=== PATIENT | female | born 1975 | race Asian ===

== ENCOUNTER 2020-12-12 18:33 | Emergency (ER) | payer OTHER, SELFPAY ==
[2020-12-12 18:59] VITALS: BP 104/74; PULSE 94; RESP 16; TEMP 37.3; O2SAT 98; BMI 21.9
--- NOTE | 2020-12-12 20:50 | PC.NURSE ---
pt became verbally abusive to staff due to the wait time. this is bullshit i've been here for hours. I have a sick kid at home this is unacceptable. I want to leave pt educated to elopement/lwt process. Pt encouraged to stay in ed. Pt refused. Ambualted to exit with steady gait. skin p/w/d.
== END 2020-12-12 20:52 | disposition left against medical advice (07) ==
PROVIDERS: Emergency Provider Emergency Medicine; PCP Physician Assistant
DX: Z04.1 Encounter for examination and observation following transport accident (principal)
CPT/HCPCS: 99282

== ENCOUNTER 2021-09-03 20:34 | Emergency (ER) | payer OTHER, SELFPAY ==
[2021-09-03 20:38] VITALS: BP 126/78; PULSE 84
[2021-09-03 21:17] VITALS: BP 122/75; PULSE 98; RESP 16; TEMP 36.8; O2SAT 99; BMI 22.8
[2021-09-03] MEDS: Lidocaine HCl 2 % MPF 5 ML VIAL INFILTRATI (21:43)
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
== END 2021-09-03 23:13 | disposition home or self-care (01) ==
PROVIDERS: Emergency Provider Emergency Medicine
DX: S01.511A Laceration without foreign body of lip, initial encounter (principal); W20.8XXA Other cause of strike by thrown, projected or falling object, initial encounter; Y93.B9 Activity, other involving muscle strengthening exercises; Y92.039 Unspecified place in apartment as the place of occurrence of the external cause; Y99.9 Unspecified external cause status
CPT/HCPCS: 12011; 99283; 99284

== ENCOUNTER 2022-02-21 08:32 | Emergency (ER) | payer OTHER, SELFPAY ==
--- NOTE | ~2022-02-21 | XR_ITS ---
EXAMINATION: XR LUMBOSACRAL SPINE CLINICAL INFORMATION: Back pain. COMPARISON: Radiograph of the lumbar spine dated from 10/30/2018. TECHNIQUE: Three views of the lumbosacral spine. FINDINGS: Again noted transitional vertebral anatomy with 6 nonrib-bearing lumbar-type vertebral bodies. There is a stable compression deformity at L2. No evidence of acute compression deformities or malalignment. In the lower lumbar spine, there is a similar degree of facet hypertrophy. No significant disc space narrowing. SI joints are symmetric. Redemonstration of multiple paraspinal soft tissue calcifications, likely correlating with calcified lymphadenopathy noted on a prior CT from 2018. XR/XR lumbar spine 2-3V IMPRESSION: Transitional anatomy as above. Stable compression deformity at L2. No new compression deformity or subluxation. Similar degree of lower lumbar spine spondylosis.
[2022-02-21 08:37] VITALS: BP 126/84; BP 127/76; PULSE 77; PULSE 80; RESP 16; TEMP 36.6; O2SAT 98; BMI 23.8
[2022-02-21 08:41] VITALS: PULSE 78; RESP 16; TEMP 36.6; O2SAT 100
--- NOTE | 2022-02-21 09:07 | ED_ITS ---
HPI - Back Pain/Injury General Chief Complaint: Back Pain/Injury Stated Complaint: LOW BACK PAIN W/DIFF AMB SINCE LAST NIGHT,NO INJ Time Seen by Provider: 02/21/22 08:55 Source: patient and EMS Mode of arrival: EMS Limitations: no limitations History of Present Illness HPI Narrative: 46-year-old female came in by ambulance for evaluation of low back pain. Patient was bending and cleaning her house when she stood up felt a sudden onset low back pain that start since yesterday pain has been constant but worsening since yesterday pain is localized to the low back, with no radiation, pain is worsening with movement and no relieving factor, patient did not fall or hurt her back, no history of heavy lifting. Patient declined any weakness or numbness, no urinary or stool incontinence. Patient declined chance of pain today. Related Data Previous Rx's Medication Instructions Recorded nitrofurantoin 100 mg PO BID #20 caps 02/21/22 monohydrate/macrocrystals 100 mg capsule (Macrobid) oxycodone 5 mg tablet 5 mg PO BID PRN pain #10 tabs 02/21/22 Allergies Allergy/AdvReac Type Severity Reaction Status Date / Time Iodinated Contrast Media Allergy Unknown RASH Verified 09/03/21 21:14 [IV CONTRAST] Review of Systems Review of Systems: All other systems are reviewed and are negative Constitutional: Reports as per HPI and Reports no additional constitutional complaints Eyes: Reports as per HPI and Reports no additional eye complaints Reports system reviewed and no additional complaints, except as documented Cardiovascular: Reports as per HPI and Reports no additional cardiovascular complaints Respiratory: Reports as per HPI and Reports no additional respiratory complaints Gastrointestinal: Reports as per HPI and Reports no additional gastrointestinal complaints Genitourinary: Reports no additional female genitourinary complaints Musculoskeletal: Reports no additional musculoskeletal complaints Skin/Breast: Reports system reviewed and no additional complaints, except as docu Psychiatric: Reports no additional psychiatric complaints Endocrine: Reports no additional endocrine complaints Hematologic/Lymphatic: Reports no additional hematologic/lymphatic complaints Allergic/Immunologic: Reports no additional allergic/immunologic complaints Reports system reviewed and no additional complaints, except as documented and Reports Abnormal speech present [facility] Past Medical History Medical History No known health problems Social History Social History Advance Directives: No Advance Directives Information Provided: No Physical Exam Vital Signs: Vital Signs: Last Vital Signs Temp 97.9 F 02/21/22 08:41 Pulse 69 02/21/22 10:52 Resp 18 02/21/22 10:52 BP 129/78 02/21/22 10:52 Pulse Ox 98 02/21/22 10:52 O2 Del Method 02/21/22 10:52 BMI result Body Mass Index 23.8 Vital signs have been reviewed as appeared to be correct. Blood pressure normal. Heart rate normal. Respiration rate normal. Temperature normal. Oxygen saturation normal. A Appearance: Alert. Oriented X3. No acute distress. Head: Normal external exam. Normocephalic. Atraumatic. No Talbot signs noted. No raccoon eyes noted Eyes: PERRLA. EOMI. Conjunctiva and sclera normal. Eyelids normal. ENT: TM's Normal. Pharynx normal. Uvula midline. Moist mucous membranes. No trismus noted. No drooling noted. No muffled voice noted. Neck: Normal inspection. Neck supple. FROM. No adenopathy. Thyroid Normal. No meningeal signs. No neck mass noted. CVS: Normal heart rate and rhythm. Heart sound normal. No murmurs noted. Pulses normal throughout. Respiratory: No respiratory distress. Painless inspiration. Breath sounds normal. No wheezes/rales/rhonchi noted. Chest nontender. No accessory muscle usage noted or decreased air movement noted. Abdomen: Soft and nontender. Bowel sounds normal in all 4 quadrants. No distention noted. No organomegaly noted. No visible injury noted. Back: No CVA tenderness. Full range of motion noted. No lumbar step-off or deformity, no point of tenderness. Skin: Skin warm and dry. Normal skin color. Normal skin turgor. No rashes/lesions/lacerations noted. Extremities: No lower extremity edema. Extremities exhibit normal range of motion. Extremities nontender. Neuro: Oriented X 3. Cranial nerve exam: II-XII are grossly intact No motor deficit. No sensory deficit. Reflexes normal. Course Course Course Narrative: Back pain after bending since yesterday, pain improved in the ED after was given dose of oxycodone and Toradol with Dilaudid. Patient was able to ambulate in the emergency department, no urinary or stool incontinence. X-ray is concern of L2 compression deformity which can be the reason of patient's symptoms. More history of the patient patient been having dysuria and urinary frequency and UA is consistent with UTI will start the patient on Macrobid and encouraged to drink plenty of fluids. MDM - Back Pain/Injury Medical Records Attestation: I reviewed the patient's medical records. Lab Data Attestation: I reviewed the patient's lab results. Labs: Lab Results 02/21/22 02/21/22 Range/Units 10:51 10:51 Urine Color Yellow Urine Appearance Cloudy Urine pH 6.5 (5.0-8.0) Ur Specific [place] >= 1.030 H (1.005-1.025) Urine Protein Trace (Neg-Trace) mg/dL Urine Glucose (UA) >=1000 H (Negative) mg/dL Urine Ketones Negative (Negative) mg/dL Urine Blood Trace (Negative) Urine Nitrite Positive H (Negative) Ur Leukocyte Esterase Moderate (2+) H (Negative) Urine RBC 0-2 (0-2) /HPF Urine WBC >50 H (0-5) /HPF Ur Squamous Epith Cells 0-2 (0-2) /HPF Urine Bacteria 4+ (None Seen) Hyaline Casts 0-2 (0-2) /LPF Urine Test NEGATIVE (NEGATIVE) Imaging Data Lumbar spine x-ray: Attestation: I personally reviewed and interpreted this imaging study as follows: Radiologist's impression: Transitional anatomy as above. ? Stable compression deformity at L2. ? No new compression deformity or subluxation. ? Discharge Plan Discharge Clinical Impression: Compression fx, lumbar spine, UTI (urinary tract infection) Patient Disposition: Home, Self-Care Instructions: Urinary Tract Infection in Women (ED), Vertebral Compression Fracture (ED) Prescriptions: New nitrofurantoin monohyd/m-cryst [Macrobid] 100 mg capsule 100 mg PO BID Qty: 20 0RF Rx Instructions: must administer with a meal/food oxycodone 5 mg tablet 5 mg PO BID PRN (Reason: pain) Qty: 10 0RF Rx Instructions: Partial Fill upon patient request. Referrals: Physician,Unknown J [Primary Care Provider] -
[2022-02-21] MEDS: oxyCODONE HCl Immed Release 5 MG TABLET PO (09:10)
--- NOTE | 2022-02-21 09:21 | PC.NURSE ---
Pt resting in stretcher guarding back. Pt states back pain 10/10, no relief with repositioning. Pain medication administered as ordered.
[2022-02-21] MEDS: HYDROmorphone HCl 1 MG/ML SYRINGE IM (09:59)
[2022-02-21] MEDS: Ketorolac Tromethamine 15 MG/ML VIAL 30 MG IM (10:00)
--- NOTE | 2022-02-21 10:16 | PC.NURSE ---
Pt states no relief from Oxycodone, Dr. Jiménez aware, new pain medication ordered. Will re-assess for pain relief.
[2022-02-21 10:52] VITALS: BP 129/78; PULSE 69; RESP 18; O2SAT 98
--- NOTE | 2022-02-21 10:53 | PC.NURSE ---
improved pain, slow steady gait to bathroom, alert, skin wpd
[2022-02-21 11:05] LABS: Appearance Urine Cloudy; Color Urine Yellow; Glucose Urine UA >=1000 mg/dL (Negative); Leukocyte Esterase Urine Moderate (2+) (Negative); Nitrite Urine Positive (Negative); PH 6.5 (5.0-8.0); Specific Gravity - Urine >= 1.030 (1.005-1.025); Urine Blood Trace (Negative); Urine Ketones Negative (Negative); Urine Protein Trace mg/dL (Neg-Trace)
[2022-02-21 11:06] LABS: UPreg QC Valid YES; Urine Pregnancy NEGATIVE (NEGATIVE)
[2022-02-21 11:15] LABS: Bacteria Urine 4+ (None Seen); Hyaline Casts Urine 0-2 /LPF (0-2); RBC Urine 0-2 /HPF (0-2); Squamous Epithelial Cell Urine 0-2 /HPF (0-2); UACC Culture Trigger YES; WBC Urine >50 /HPF (0-5)
== END 2022-02-21 11:57 | disposition home or self-care (01) ==
PROVIDERS: Emergency Provider Emergency Medicine
DX: M48.56XA Collapsed vertebra, not elsewhere classified, lumbar region, initial encounter for fracture (principal); N39.0 Urinary tract infection, site not specified; B96.20 Unspecified Escherichia coli [E. coli] as the cause of diseases classified elsewhere
CPT/HCPCS: 72100; 81001; 81003; 81025; 87086; 87088; 87186; 96372; 99284; J1170; J1885

== ENCOUNTER 2023-02-09 15:21 | Emergency (ER) | payer MEDICAID, SELFPAY ==
--- NOTE | 2023-02-09 15:31 | ED_ITS ---
HPI - Extremity Injury (Upper) General Chief Complaint: Wound/Laceration Stated Complaint: split finger w knife Time Seen by Provider: 02/09/23 17:26 Source: patient Mode of arrival: ambulatory Limitations: no limitations History of Present Illness HPI narrative: Patient is a 47-year-old female with history of type 2 diabetes who presents with three children with a left hand laceration. Patient explains she was trying to cut a zip tie with a pocket knife when the knife slipped. Patient states she is up to date with tetanus vaccine and not on blood thinners. Patient's family states that the bleeding was controlled prior to arriving to the ER. Reports no issues w/ rom of fingers in left hand. Related Data Previous Rx's Medication Instructions Recorded nitrofurantoin 100 mg PO BID #20 caps 02/21/22 monohydrate/macrocrystals 100 mg capsule (Macrobid) oxycodone 5 mg tablet 5 mg PO BID PRN pain #10 tabs 02/21/22 cephalexin 500 mg tablet 500 mg PO Q6H 10 days #40 tabs 02/09/23 Allergies Allergy/AdvReac Type Severity Reaction Status Date / Time Iodinated Contrast Media Allergy Unknown RASH Verified 09/03/21 21:14 [IV CONTRAST] Review of Systems Review of Systems: Constitutional : No Weight loss, No Fever, No Chills, No Fatigue, No Malaise ENT/Mouth : No sore throat, No Rhinorrhea Eyes: No Eye Pain, No Swelling, No Redness Cardiovascular : No Chest Pain, No SOB, No Dyspnea on Exertion, No Orthopnea, No Edema, No Palpitations Respiratory : No Cough, No Sputum, No Wheezing Gastrointestinal : No Nausea, No Vomiting, No Diarrhea, No Constipation, No abdominal Pain, No Hematochezia, No Melena Genitourinary : No Dysuria, No Urinary Frequency, No Hematuria, Musculoskeletal : No joint pain, No Myalgias, No Joint Swelling Skin : +laceration to left palm, No rash Neuro : No Weakness, No Numbness, No Dizziness, No Headache Psych : No Anxiety/Panic, No Depression All other systems reviewed and are negative Yes all other systems are reviewed and are negative PMFSH Past Medical History Attestation statement: The following information was validated with the patient. Source: old records reviewed and nursing notes reviewed Medical History No known health problems Social History Social History Advance Directives: No Advance Directives Information Provided: No Physical Exam Vital Signs: Vital Signs: Last Vital Signs Temp 97.7 F 02/09/23 15:34 Pulse 89 02/09/23 15:34 Resp 18 02/09/23 15:34 BP 142/106 H 02/09/23 15:34 Pulse Ox 97 02/09/23 15:34 O2 Del Method Room Air 02/09/23 15:34 BMI result Body Mass Index 21.4 VSS Appearance: Alert.? Oriented X3.? No acute distress.? Head: Normocephalic, atraumatic, no step-offs or deformities Eyes: Pupils equal, round and reactive to light.? CVS: Normal heart rate and rhythm.? Pulses normal.? Respiratory: No respiratory distress.? Breath sounds normal.? Abdomen: Soft and nontender.? Skin: + 2 cm superficial laceration to the left palm. Sensation and motor function of the left hand and fingers is intact. Pulses 2+ and symmetric. Skin warm and dry.? Normal skin color.? Normal skin turgor.? Extremities: No lower extremity edema.? No calf ttp. 5/5 strength to bilateral upper and lower extremities Neuro: Oriented X 3.? No motor deficit.? No sensory deficit. CN 2-12 intact Course Course Course Narrative: RME: 47 yo F w/no sig PMHx c/o laceration to L hand s/p using knife 30mins [employer]. Tetanus UTD. denies injury to other area 2cm laceration to L hand palmar aspect bwt 1-2nd digits. Will need suture repair Lidocaine ordered Full HPI, ROS and PE to be performed by primary ED provider. Reevaluation(s) Reevaluation #1: dermabond applied. Cephlex sent to pharmacy as patient diabetic. Educated patient on diagnosis and treatment plan, answered all question, patient verbalizes understanding. At this time patient will be discharged home, advised to return with new or worsening symptoms. Educated on worrisome signs and symptoms and when to return. At this time I feel comfortable discharge home. Time: 18:40 Reevaluation #2: I did have a discussion with patient sutures versus Dermabond, patient did not want sutures she was adamant about Dermabond. Dermabond appropriate as edges well approximate well. No signs of fracture on my exam unlikely open fracture , mechanism of low suspicion for fracture. However will still treat with Keflex as patient is diabetic. Time: 18:42 Medications Administered Discontinued Medications Generic Name Dose Route Start Last Admin Trade Name Avelina PRN Reason Stop Dose Admin Lidocaine HCl 5 ml 02/09/23 15:33 02/09/23 18:24 Lidocaine Hcl 1 % Mpf 5 Ml Vial INFILTRATI 02/09/23 15:34 Not Given ONCE ONE Medical Decision Making Medical Decision Making MDM Narrative: 47 year old female with a laceration to the left hand PE significant for left hand superficial laceration. Pulses, motor and sensory function intact. This is likely a non-infected superficial laceration of the left hand. Unlikely . No signs of threat to limb or neruovascular compromise. Unlikely fracture, dislocation i do not suspect ligament or tendon rupture. Plan: Sutures vs dermabond. After discussion with patient, she declines sutures at this time. Wound irrigated with saline before dermabond was applied. Dressing and digit immobilizer applied. Keflex sent to home pharmacy to cover for infection since patient is diabetic. Differential Diagnosis Differential Diagnoses: The differential diagnosis associated with the presentation includes This is likely a non-infected superficial laceration of the left hand. Unlikely . No signs of threat to limb or neruovascular compromise. Unlikely fracture, dislocation i do not suspect ligament or tendon rupture. Admission/Observation Consideration of admission/observation: Escalation of care including admission/observation considered Not indicated. Prescription Management I considered prescription management with: Antibiotic Keflex sent to home pharmacy. Core Measures AMI core measures followed: Yes Measure exclusions: not indicated Critical Care Time Critical Care Time Critical Care Time: No Discharge Plan Discharge Clinical Impression: Laceration Patient Disposition: Home, Self-Care Instructions: Laceration (ED) Additional Instructions: Take your medications as prescribed. If you were prescribed antibiotics today, it is important that you take your medication to their entirety, do not skip any doses, do not finish them early. Follow-up with your primary care provider this week. Return to the emergency department with new or worsening symptoms. Such as fevers, chills, chest pain, shortness of breath, nausea, vomiting, dizziness, headache, vision changes, lethargy In case of emergency call 911 Prescriptions: New cephalexin 500 mg tablet 500 mg PO Q6H 10 Days Qty: 40 0RF No Action nitrofurantoin monohyd/m-cryst [Macrobid] 100 mg capsule 100 mg PO BID Qty: 20 0RF Rx Instructions: must administer with a meal/food oxycodone 5 mg tablet 5 mg PO BID PRN (Reason: pain) Qty: 10 0RF Rx Instructions: Partial Fill upon patient request. Referrals: Physician,None [Primary Care Provider] - 2 days
[2023-02-09 15:34] VITALS: BP 142/106; PULSE 89; RESP 18; TEMP 36.5; O2SAT 97; BMI 21.4
--- OUTSIDE RECORDS SUMMARY | 2023-02-09 17:33 | XMS_ITS | Continuity of Care Document ---
Author Name Unknown Organization [facility] Address [address], [address] [place] [address]- Care Team Providers Care Trust Advisor Name Role Phone Osmin Valdes Primary Care Physician [place] [facility] [place] 10[place]22 [facility]ryroman Martinezup[facility] [address], [address] [place] [address]- Attending Physician: Yulissa Martinez MD Referring Physician: Osmin Valdes Allergies, Adverse Reactions, Alerts Substance Reaction Severity Status Contrast Dye Active Immunizations Given and Recorded Vaccine Date Status Refusal Reason Measles/Mumps/Rubella Virus Vaccine 08/20/19 Given Medications acetaminophen 325 mg oral tablet 650 mg, By Mouth, Every 4 hours, PRN, (1-3), may give 325mg per patient preference and re-dose [id number] within 4 hours, if needed. Patient should only receive a total of 650mg of Acetaminophen every 4 hours., Refills 0, Maintenance, Pain , Mild, 0... Start Date: 08/22/19 Status: Ordered Alcohol Pads See Instructions, # 1 pack/packet, Refills 3, Tot. Refills 3, Maintenance, To use with inslin 4 x day, 08/06/19 14:41:00 EST, Compound, 158, cm, 06/06/19 10:59:00 EST, Height Start Date: 08/06/19 Status: Ordered Anusol-HC 2.5% cream with applicator 1 application, Rectally, 2 times a day, # 30 Gm, 0 Refills, Maintenance, 09/07/19 2:54:00 EDT, Cream, [id number], 1 application Rectally 2 times a day, 158, cm, 09/07/19 1:43:00 EDT, Height, 72.4, kg, 09/07/19 0:36:00 EDT, Dry Weight Start Date: 09/07/19 Status: Ordered Clonazepam By Mouth, 3 times a day, 0 Refills, Maintenance, 07/22/19 15:54:00 EST Start Date: 07/22/19 Status: Ordered Colace sodium 100 mg oral capsule 100 mg, 1, capsule, By Mouth, 2 times a day, PRN, # 60 capsule, Refills 1, Tot. Refills 1, Maintenance, for constipation, 09/07/19 2:55:00 EDT, Route to Pharmacy Electronically, [facility]pharmacy #[id number], 158, cm, 09/07/19 1:43:00 EDT, Height, 72.4, kg, 08/24... Start Date: 09/07/19 Status: Ordered Freestyle Lite Lancets See Instructions, # 1 pack/packet, Refills 3, Tot. Refills 3, Maintenance, To test blood sugar 4 x day., 08/06/19 14:41:00 EST, Compound, 158, cm, 06/06/19 10:59:00 EST, Height Start Date: 08/06/19 Status: Ordered Freestyle Lite Monitor See Instructions, # 1 box, Refills 0, Tot. Refills 0, Maintenance, To test BS 4 x day., 03/01/19 14:53:00 EDT, Compound Start Date: 03/01/19 Status: Ordered Freestyle Lite Test Strips See Instructions, # 1 pack/packet, Refills 3, Tot. Refills 3, Maintenance, To test blood sugar 4 x day. 1 Bottle= 100 test strips, 08/06/19 14:41:00 EST, Compound, 158, cm, 06/06/19 10:59:00 EST, Height Start Date: 08/06/19 Status: Ordered KlonoPIN 1 mg oral tablet 1 tablet = 1 mg, By Mouth, 2 times a day, 0 Refills, Maintenance, 09/07/19 1:47:00 EDT, Tablet Start Date: 09/07/19 Status: Ordered metFORMIN 500 mg oral tablet 2 each = 1,000 mg, By Mouth, 2 times a day, 0 Refills, Maintenance, 08/22/19 7:25:00 EST, Tablet Start Date: 08/22/19 Status: Ordered Pen [place], 30 G x 8 mm BD Ultra Fine II See Instructions, # 1 kit, Refills 0, Tot. Refills 0, Maintenance, To use with insulin 4 x day 1 kit = 200 needles, 07/04/19 21:01:00 EST, Compound, 158, cm, 06/06/19 10:59:00 EST, Height Start Date: 07/04/19 Status: Ordered Plus Iron oral tablet 1 tablet, By Mouth, Daily, # 90 tablet, 4 Refills, Maintenance, 10/16/20 16:21:00 EDT, Tablet, [id number], Partial fill upon patient request if the prescription is for a schedule II opioid drug., 1 tablet By Mouth Daily,x90 days, 158, cm, 08/24... Start Date: 10/16/20 Stop Date: 01/09/22 Status: Ordered Wellbutrin XL 150 mg/24 hours oral tablet, extended release 1 tablet = 150 mg, By Mouth, Every 24 hours, # 30 tablet, 0 Refills, Maintenance, 09/07/19 1:47:00 EDT, ER Tablet Start Date: 09/07/19 Status: Ordered Problem List Condition Confirmation Course Effective Dates Status Health St atus Informant AMA - advanced maternal age 1 Confirmed 08/19/19 Active Gestational diabetes Confirmed Active Grand multipara Confirmed Active Type 2 diabetes mellitus Confirmed Active 1Problem added by Discern Expert @MISC:9 Social History Social History Type Response Smoking Status 5-9 cigarettes (betw een 1/4 to 1/2 pack)/day in last 30 days entered on: 08/19/19 Sex Female Patient Care team information Care Team Personnel Name: Osmin Valdes Position: S Outreach Member Role: PCP Address: Address: [address] [place] [address]- Care Team Related Persons Name: MARIAHBRUNO [facility] [address] Name: ROLANDO RAMANA Address: home [address] [place] [address] [place] [id number] Name: RAMANA MARSHALL Address: Address: home [address] [place] [address] [place] [id number]
--- OUTSIDE RECORDS SUMMARY | 2023-02-09 17:33 | XMS_ITS | Summary of Care ---
Author Name Unknown Organization [facility] Address [address] [place] [address]- Encounter [facility] [id number] Date(s): 02/12/20 - 02/12/20 [facility] [address] [place] [address]- [facility] Discharge Disposition: Discharge Attending Physician: LYN VALDOVINOS MD Referring Physician: LYN VALDOVINOS MD
--- OUTSIDE RECORDS SUMMARY | 2023-02-09 17:33 | XMS_ITS | Continuity of Care Document ---
Author Name [facility] [employer] [employer] [facility] Address [address], [address] [place] [address]- Care Team Providers Care Slate Mixer Name Role Phone Osmin Valdes Primary Care Physician En[place] [facility] [place] Date(s[facility] 09/27/22 - 10/27/22 [facility] [address] [place], [place] [address] Attending Physician: Enzo Smith Admitting Physician: Enzo Smith Referring Physician: Enzo Smith Allergies, Adverse Reactions, Alerts Substance Reaction Severity Status Contrast Dye Active Immunizations Given and Recorded Vaccine Date Status Refusal Reason Measles/Mumps/Rubella Virus Vaccine 08/20/19 Given Medications acetaminophen 325 mg oral tablet 650 mg, By Mouth, Every 4 hours, PRN, (1-3), may give 325mg per patient preference and re-dose [id number] within 4 hours, if needed. Patient should [...] Refills, Maintenance, 09/07/19 2:54:00 EDT, Cream, [id number], 1 application Rectally 2 times a day, [...] 09/07/19 2:55:00 EDT, Route to Pharmacy Electronically, [facility]pharmacy #[id number], 158, cm, 09/07/19 1:43:00 EDT, Height, [...] Tablet Start Date: 08/22/19 Status: Ordered Pen [place], 30 G x 8 mm BD Ultra [...] Refills, Maintenance, 10/16/20 16:21:00 EDT, Tablet, [id number], Partial fill upon patient request if the [...] Confirmed Active 1Problem added by Discern Expert @MIS:9 Social History Social History Type Response Smoking Status 5-9 cigarettes (betw een 1/4 to 1/2 pack)/day in last 30 days entered on: 08/19/19 Sex Female Laboratory * Event Display: Laboratory Result Scanned Authored Date: Patient Care team information Care Team Personnel Name: Osmin Valdes Position: S Outreach Member Role: PCP Address: Address: [address] [place] [id number]- Care Team Related Persons Name: MARIAHBRUNO Address: [place] [address] Name: RAMANA MARSHALL Address: home [address] [place] [id number] Name: RAMANA MARSHALL Address: Address: home [address] [facility] [address] [place] [id number] [place]
[2023-02-09 18:37] VITALS: BP 106/74; PULSE 74; RESP 14; TEMP 36.6; O2SAT 100
== END 2023-02-09 18:42 | disposition home or self-care (01) ==
PROVIDERS: Emergency Provider Emergency Medicine
DX: S61.412A Laceration without foreign body of left hand, initial encounter (principal); W26.0XXA Contact with knife, initial encounter; E11.9 Type 2 diabetes mellitus without complications; Y93.89 Activity, other specified; Y92.9 Unspecified place or not applicable; Y99.9 Unspecified external cause status
CPT/HCPCS: 99283